=== PATIENT | female | born 1985 | race Caucasian/White ===

== ENCOUNTER 2016-11-29 11:02 | Day surgery (SDC) | payer BC ==
[~2016-11-29 11:02] MED LIST: Buffered Lidocaine 0.9% SYRIN* 5 ML/SYR SYRINGE INTRADERM ONE; Dexamethasone IV* 4 MG/ML 1 ML (4 MG) ONE; DiMENhydriNATE IV* 50 MG/ML VIAL ONE; Famotidine IV* 10 MG/ML 2 ML (20 mg) IV ONE; Ketorolac INJ* 30 MG/ML 1 ML VIAL ONE; Lidocaine 2% PF * 5 ML VIAL ONE; Midazolam* 1 MG/ML 5 ML VIAL (5 MG) ONE; Ondansetron INJ* 2 MG/ML VIAL ONE; Propofol* 10 MG/ML 20 ML BTL IV PUSH ONE; fentaNYL* 50 MCG/ML 2 ML VIAL (100 MCG VIAL) ONE
[2016-11-29] MEDS ORDERED: Ferric Subsulfate* 8 ML BTL ONE (11:33)
[2016-11-29] MEDS ORDERED: Iodine Strong (LUGOL'S)* 14 ML BTL ONE (11:33)
[2016-11-29] MEDS ORDERED: Lidocaine 1% INJ* 10 MG/ML 30 ML SDV ONE (11:33)
[2016-11-29] MEDS ORDERED: Acetic Acid 0.25%* 250 ML BTL ONE (11:34)
[2016-11-29] MEDS ORDERED: DiMENhydriNATE IV* 50 MG/ML VIAL IV PUSH PRN (11:50)
[2016-11-29] MEDS ORDERED: Acetaminophen TAB* 325 MG PO PRN (11:50)
[2016-11-29] MEDS ORDERED: oxyCODONE TAB* 5 MG TAB PO PRN (11:50)
[2016-11-29] MEDS ORDERED: HYDROmorphone* 1 MG/ML 1 ML SYR IV PRN (11:50)
[2016-11-29 12:00] LABS: Manual Entry Verification AS; UR Preg Internal Control QC Line Present; UR Preg Kit Lot# 7010135
[2016-11-29 14:17] VITALS: BP 108/64
--- NOTE | 2016-12-07 05:54 | OP ---
DATE OF OPERATION: 11/29/16 [facility] DATE OF : 87 SURGEON: Leonard Styles MD ANESTHESIOLOGIST: Rupinder Unger MD ANESTHESIA: General anesthetic. PRE-OP DIAGNOSIS: High grade squamous intraepithelial lesion on colposcopy, consistent with cervical intraepithelial neoplasia III, carcinoma in situ. POST-OP DIAGNOSIS: High grade squamous intraepithelial lesion on colposcopy, consistent with cervical intraepithelial neoplasia III, carcinoma in situ, pending pathology. OPERATIVE PROCEDURE: Colposcopy and loop electrocautery excision procedure. ESTIMATED BLOOD LOSS: Less than 5 cc. SPECIMEN SENT TO PATHOLOGY: Cervical LEEP biopsy specimen. IV FLUIDS: She received 600 cc of IV crystalloid fluid. URINE OUTPUT: None. FINDINGS: The patient was noted to have a grossly normal cervix on the exam under anesthesia. Colposcopically, she had an adequate colposcopy. There was an acetowhite lesion with not normal blood vessels noted at the left ectocervical border from 1 o'clock to 5 o'clock position. DESCRIPTION OF PROCEDURE: The patient was taken to the operating room where she was identified. She was placed on the operating table, where a general anesthetic with endotracheal intubation was obtained without difficulty. She was then placed in the dorsal lithotomy position, prepped and draped in a normal sterile fashion. At this point, the bladder was catheterized and cleared of urine. A coated speculum was inserted into the patient's vagina and the speculum was then attached to suction and at this point a colposcopy was performed using acetic acid. The colposcopy was deemed to be adequate and a lesion was identified at the 1 o'clock to 5 o'clock position. After the colposcopy, I then proceeded with a loop electrocautery excision procedure, cervical biopsy at a setting of 50 pure cut. The LEEP procedure was done. The cervical specimen was removed and sent to Pathology. The bed of the cervix where the specimen had been obtained was cauterized with a ball electrode and hemostasis was achieved. At this point, there was no further bleeding. All the instruments were then removed from the patient's vagina. Sponge, lap, and needle counts were correct x2. She was then transferred to recovery area in stable condition. [id number]/[facility] #: [id number] [facility]
== END 2016-11-29 14:19 | disposition home or self-care (01) ==
LOC: OR 11:02
PROVIDERS: ATTEND Obstetrics & Gynecology
DX: D06.1 Carcinoma in situ of exocervix (principal); Z88.2 Allergy status to sulfonamides
CPT/HCPCS: 81025; 88307; A9270-GY; J1100; J1240; J1885; J2001; J2250; J2405; J2704; J3010

== ENCOUNTER 2017-06-12 08:35 | Emergency (ER) | payer BC ==
--- NOTE | 2017-06-12 10:08 | ED ---
Influenza-Like Illness - HPI Summary HPI Summary: 32 female presents to ED with complaints of nasal congestion, myalgias, cough and fever/chills that has been ongoing for the past 3 days. States her entire family has been diagnosed with the flu and she thinks that is what she has. Denies any difficulty breathing or SOB however when she takes a deep breath it does make her cough. Denies chest pain. Admits to having a productive cough intermittently, with yellow "chunky" phlegm. No other complaints. No PMHx. No medications other than dayquil or nyquil. States fever was 101-100F. Denies n/v/ d. - History of Current Complaint Chief Complaint: EDFluSymptoms Time Seen by Provider: 06/12/17 09:03 Hx Obtained From: Patient Onset/Duration: Sudden Onset, Lasting Days, Still Present Severity: Moderate Associated Signs & Symptoms: Fever, Myalgia, Cough, Sore Throat, Nasal Congestion, Headache - Allergy/Home Medications Allergies/Adverse Reactions: Allergies Allergy/AdvReac Type Severity Reaction Status Date / Time Sulfa Antibiotics AdvReac See Comment Verified 06/12/17 08:49 PMH/Surg Hx/FS Hx/Imm Hx Endocrine/Hematology History: Denies: Hx Diabetes Cardiovascular History: Denies: Hx Hypertension Respiratory History: Denies: Hx Asthma Sensory History: Reports: Hx Contacts or Glasses - GLASSES Denies: Hx Hearing Aid Opthamlomology History: Reports: Hx Contacts or Glasses - GLASSES Neurological History: Reports: Hx Migraine - 2-3 per year-TREATS WITH REST - Surgical History Surgery Procedure, Year, and Place: 06/2016- BILATERAL BREAST AUGMENTATION- [place] Hx Anesthesia Reactions: No - Immunization History Immunizations Up to Date: Yes Infectious Disease History: Yes Infectious Disease History: Denies: Traveled Outside the [place] in Last 30 Days - Family History Known Family History: Positive: None - Social History Alcohol Use: Rare Alcohol Amount: 1-2 PER WEEK Substance Use Type: Reports: None Smoking Status (MU): Never Smoked Tobacco Review of Systems Positive: Fever, Chills, Fatigue Eyes: Negative Positive: Sore Throat, Nasal Discharge Cardiovascular: Negative Positive: Cough Gastrointestinal: Negative Positive: Myalgia Skin: Negative Positive: Headache All Other Systems Reviewed And Are Negative: Yes Physical Exam Triage Information Reviewed: Yes Vital Signs On Initial Exam: Initial Vitals Temp Pulse Resp BP Pulse Ox 99.7 F 93 16 115/74 97 06/12/17 08:50 06/12/17 08:50 06/12/17 08:50 06/12/17 08:50 06/12/17 08:50 Vital Signs Reviewed: Yes Appearance: Positive: Well-Appearing, No Pain Distress, Well-Nourished Skin: Positive: Warm, Skin Color Reflects Adequate Perfusion, Dry. Negative: Cold, Cyanosis @, Erythema @ Head/Face: Positive: Normal Head/Face Inspection Eyes: Positive: Conjunctiva Clear ENT: Positive: Hearing grossly normal, Pharyngeal erythema, Nasal congestion, TMs normal, Uvula midline. Negative: TM bulging, TM dull, TM red, Tonsillar swelling, Tonsillar exudate Dental: Negative: Cervical Lymphadenopathy Neck: Positive: Supple, Nontender, No Lymphadenopathy Respiratory/Lung Sounds: Positive: Clear to Auscultation, Breath Sounds Present , Wheezes - slight wheeze lower left lobe, improved after cough. Negative: Decreased Breath Sounds, Rales, Rhonchi, Stridor, Tracheal Deviation, Unable to speak in full sentences, Fatigue Cardiovascular: Positive: Normal, RRR, Pulses are Symmetrical in both Upper and Lower Extremities. Negative: Murmur, Rub Bowel Sounds: Positive: Present Musculoskeletal: Positive: Normal, Strength/ROM Intact Neurological: Positive: Normal, Sensory/Motor Intact, Alert, Oriented to Person Place, Time Diagnostics - Vital Signs Vital Signs Temp Pulse Resp BP Pulse Ox 06/12/17 08:50 99.7 F 93 16 115/74 97 - Laboratory Lab Statement: Any lab studies that have been ordered have been reviewed, and results considered in the medical decision making process. Flu Symptom Course/Dx - Course Course Of Treatment: influenza obtained and positive for A. will give tamiflu. rest, fluids, ibu/tylenol. aware of worsening signs and symptoms. no other concerns at this time. follow up with pcp. - Diagnoses Differential Diagnosis/HQI/PQRI: Positive: Influenza, Pneumonia, Upper Respiratory Infection Provider Diagnoses: Influenza A Discharge - Discharge Plan Condition: Stable Disposition: HOME Prescriptions: Oseltamivir CAP* [Tamiflu CAP*] 75 mg PO BID #10 cap Patient Education Materials: Influenza (ED) Forms: *Work Release Referrals: Chacha Alba MD [Primary Care Provider] - Additional Instructions: Take prescribed tamiflu as directed. Continue ibuprofen/tylenol as needed for fever/chills and body aches. Increase fluid intake and get plenty of rest. Wash hands frequently, cover mouth when coughing. Flu is very contagious. Any new or worsening symptoms please seek medical attention. Follow up with PCP.
[2017-06-12 10:35] VITALS: BP 129/90
== END 2017-06-12 10:34 | disposition home or self-care (01) ==
LOC: ED 08:35
DX: J11.1 Influenza due to unidentified influenza virus with other respiratory manifestations (principal); Z88.2 Allergy status to sulfonamides
CPT/HCPCS: 87502; 99282

== ENCOUNTER 2017-06-19 07:03 | Emergency (ER) | payer BC ==
[2017-06-19] MEDS ORDERED: Ondansetron ODT TAB* 4 MG PO ONE (07:40)
[2017-06-19] MEDS ORDERED: Prochlorperazine TAB* 10 MG PO ONE (07:56)
[2017-06-19] MEDS ORDERED: Ketorolac INJ* 30 MG/ML 1 ML VIAL IV PUSH ONE (07:56)
[2017-06-19] MEDS ORDERED: diPHENhydraMINE IV* 50 MG/ML 1 ml VIAL (BENADRYL) IV ONE (07:56)
[2017-06-19 08:12] LABS: Urine Appearance Clear; Urine Blood Negative (Negative); Urine Color Yellow; Urine Ketones Trace (Negative); Urine Protein Negative (Negative); Urine Urobilinogen Negative (Negative)
[2017-06-19 08:16] LABS: ABS Basophils 0 10^3/ul (0-0.2); ABS Eosinophils 0.1 10^3/ul (0-0.6); ABS Lymphocytes 2.5 10^3/ul (1.0-4.8); ABS Monocytes 0.7 10^3/ul (0-0.8); ABS Neutrophils 7.9 10^3/ul (1.5-7.7); ABS Nucleated RBC 0 10^3/ul; Eosinophil % 1.1 % (0-6); Hematocrit 42 % (35-47); Hemoglobin 14.3 g/dl (12.0-16.0); Lymphocyte % 21.8 % (25-47); Mean Corpuscular HGB Conc 34 g/dl (31-36); Mean Corpuscular Hemoglobin 31 pg (27-31); Mean Corpuscular Volume 90 fL (80-97); Mean Platelet Volume 8 um3 (7.4-10.4); Nucleated Red Blood Cells % 0; Platelet Count 243 10^3/ul (150-450); Red Blood Count 4.67 10^6/ul (4.0-5.4); Red Cell Distribution Width 13 % (10.5-15); White Blood Count 11.3 10^3/ul (3.5-10.8)
[2017-06-19 08:30] LABS: EGFR Non-African American 104.5 (>60)
[2017-06-19] MEDS ORDERED: Morphine INJ* 4 MG/ML 1 ML CARPUJECT IV ONE (09:13)
--- NOTE | 2017-06-19 10:22 | RAD ---
indication: Headaches and vomiting COMPARISON: None A CT scan of the brain and and maxillofacial bones was performed without intravenous contrast enhancement. Contiguous axial sections were obtained from the lower cervical spine through the cranial vertex. BRAIN: The ventricles, cisterns and sulci are within normal limits. No significant focal abnormality or mass effect is seen. The crawford-white differentiation is adequately maintained. There is no evidence for intracranial hemorrhage. No significant bony abnormality is present. The mastoid air cells are appropriately aerated. The visualized paranasal sinuses are clear. FACIAL BONES: Bones: There is no displaced fracture or dislocation. The orbital rim is intact. The zygomatic arch is intact. The pterygoid plates are intact Orbits: The globes are round. The optic nerves are symmetric. The extraocular musculature is normal. There is no post septal or intraconal inflammatory change. There is no retrobulbar hematoma. Paranasal Sinuses: The paranasal sinuses are clear. IMPRESSION: 1. No acute intracranial abnormality. 2. Normal facial bones without CT evidence of paranasal sinus disease.
--- NOTE | 2017-06-19 12:05 | ED ---
Rocky Handy Angela, scribed for Tramaine Bishop MD on 06/19/17 at 0740 . Headache - HPI Summary HPI Summary: This pt is a 32 y/o female presenting to [facility] c/o headache since yesterday. Pt reports she tested positive for the flu 1 week ago. She states she has had a headache since yesterday morning. Pt notes she got up at 20:00 last night and vomited, but went back to bed. This morning she felt nauseous but still came to work. Pt reports she has history of migraines but her usual migraines are associated with pain behind her eye and when she has more significant pain she vomits, but usually her migraine subsides after vomiting. She felt feverish last night, today feels flushed and has photophobia. Denies LE or UE weakness, numbness, tingling, neck pain. Pt has not eaten since yesterday and this morning had a little bit of water secondary to nausea. She notes this is the first headache she has had like this in 3 years. Pt last took ibuprofen 600 mg at 06:00 today. Allergies to sulfa. Surgeries include LEEP in cervix in December 2016 and 1 year ago she had bilateral breast augmentation. Denies chance of . When she was 13 y/o pt had suppository medications for migraine. She reports narcotics make her feel worse. - History Of Current Complaint Chief Complaint: EDHeadache Stated Complaint: FLU LAST WEEK, HEADACHE Hx Obtained From: Patient Onset/Duration: Started days ago, Still Present Currently Pain Is: Current Pain Scale(0-10)= - 7 Timing: Days Location of Headache: Diffuse Aggravating Factor: Bright Lights Allevating Factors: Nothing Associated Signs And Symptoms: Nausea, Vomiting, Fever - Allergies/Home Medications Allergies/Adverse Reactions: Allergies Allergy/AdvReac Type Severity Reaction Status Date / Time Sulfa Antibiotics AdvReac See Comment Verified 06/12/17 08:49 PMH/Surg Hx/FS Hx/Imm Hx Endocrine/Hematology History: Denies: Hx Diabetes Cardiovascular History: Denies: Hx Hypertension Respiratory History: Denies: Hx Asthma Sensory History: Reports: Hx Contacts or Glasses - GLASSES Denies: Hx Hearing Aid Opthamlomology History: Reports: Hx Contacts or Glasses - GLASSES Neurological History: Reports: Hx Migraine - 2-3 per year-TREATS WITH REST - Surgical History Surgery Procedure, Year, and Place: 06/2016- BILATERAL BREAST AUGMENTATION- [place] Hx Anesthesia Reactions: No Infectious Disease History: No Infectious Disease History: Denies: Traveled Outside the [place] in Last 30 Days - Family History Known Family History: Positive: Diabetes - maternal grandfather - Social History Alcohol Use: Rare Alcohol Amount: 1-2 PER WEEK Substance Use Type: Reports: None Smoking Status (MU): Never Smoked Tobacco Review of Systems Positive: Fever. Negative: Chills Positive: Photophobia Positive: Vomiting, Nausea Negative: Other - neck pain Positive: Headache. Negative: Weakness, Paresthesia, Numbness All Other Systems Reviewed And Are Negative: Yes Physical Exam - Summary Physical Exam Summary: Appearance: Well-appearing, Well-nourished. No acute distress. Skin: Warm and dry. Eyes: Normal. EOMI. PERRL. ENT: Normal. Neck: Supple, nontender. No masses. Respiratory: Clear to auscultation. Normal breath sounds bilaterally. Cardiovascular: Normal, S1, S2 Abdomen: Soft, nontender, no masses. Bowel: Present Musculoskeletal: Normal, Strength/ROM Intact. Normal strength and sensation bilaterally in UE and LE. Neurological: Normal, A&Ox3. Cranial nerves II-XII are intact. Psychiatric: Normal Triage Information Reviewed: Yes Vital Signs On Initial Exam: Initial Vitals Temp Pulse Resp BP Pulse Ox 98.6 F 78 18 127/93 99 06/19/17 07:05 06/19/17 07:05 06/19/17 07:05 06/19/17 07:05 06/19/17 07:05 Vital Signs Reviewed: Yes - [place] Coma Scale Coma Scale Total: 15 Diagnostics - Vital Signs Vital Signs Temp Pulse Resp BP Pulse Ox 06/19/17 07:05 98.6 F 78 18 127/93 99 - Laboratory Lab Results: Lab Results 06/19/17 06/19/17 06/19/17 Range/Units 07:48 08:06 08:06 WBC 11.3 H (3.5-10.8) 10^3/ul RBC 4.67 (4.0-5.4) 10^6/ul Hgb 14.3 (12.0-16.0) g/dl Hct 42 (35-47) % MCV 90 (80-97) fL MCH 31 (27-31) pg MCHC 34 (31-36) g/dl RDW 13 (10.5-15) % Plt Count 243 (150-450) 10^3/ul MPV 8 (7.4-10.4) um3 Neut % (Auto) 70.3 (38-83) % Lymph % (Auto) 21.8 L (25-47) % [place] % (Auto) 6.5 (1-9) % Eos % (Auto) 1.1 (0-6) % Baso % (Auto) 0.3 (0-2) % Absolute Neuts (auto) 7.9 H (1.5-7.7) 10^3/ul Absolute Lymphs (auto) 2.5 (1.0-4.8) 10^3/ul Absolute Monos (auto) 0.7 (0-0.8) 10^3/ul Absolute Eos (auto) 0.1 (0-0.6) 10^3/ul Absolute Basos (auto) 0 (0-0.2) 10^3/ul Absolute Nucleated RBC 0 10^3/ul Nucleated RBC % 0 Sodium 137 (133-145) mmol/L Potassium 3.8 (3.5-5.0) mmol/L Chloride 105 (101-111) mmol/L Carbon Dioxide 24 (22-32) mmol/L Anion Gap 8 (2-11) mmol/L BUN 9 (6-24) mg/dL Creatinine 0.66 (0.51-0.95) mg/dL Est GFR ( Amer) 134.3 (>60) Est GFR (Non-Af Amer) 104.5 (>60) BUN/Creatinine Ratio 13.6 (8-20) Glucose 89 (70-100) mg/dL Calcium 9.3 (8.6-10.3) mg/dL Total Bilirubin 0.90 (0.2-1.0) mg/dL AST 16 (13-39) U/L ALT 14 (7-52) U/L Alkaline Phosphatase 46 (34-104) U/L Total Protein 7.6 (6.4-8.9) g/dL Albumin 4.5 (3.2-5.2) g/dL Globulin 3.1 (2-4) g/dL Albumin/Globulin Ratio 1.5 (1-3) Beta HCG, Quant < 0.60 mIU/mL Urine Color Yellow Urine Appearance Clear Urine pH 7.0 (5-9) Ur Specific [place] 1.020 (1.010-1.030) Urine Protein Negative (Negative) Urine Ketones Trace H (Negative) Urine Blood Negative (Negative) Urine Nitrate Positive H (Negative) Urine Bilirubin Negative (Negative) Urine Urobilinogen Negative (Negative) Ur Leukocyte Esterase Negative (Negative) Urine WBC (Auto) Absent (Absent) Urine RBC (Auto) Absent (Absent) Ur Squamous Epith Cells Present H (Absent) Urine Bacteria 1+ H (Absent) Urine Glucose Negative (Negative) Result Diagrams: 06/19/17 08:06 06/19/17 08:06 Lab Statement: Any lab studies that have been ordered have been reviewed, and results considered in the medical decision making process. - CT Brain CT CT Interpretation: No Acute Changes - IMPRESSION: 1. No acute intracranial abnormality. 2. Normal facial bones without CT evidence of paranasal sinus disease. Dr. Bishop has reviewed this radiology report. CT Interpretation Completed By: Radiologist Maxillofacial CT CT Interpretation: No Acute Changes - IMPRESSION: 1. No acute intracranial abnormality. 2. Normal facial bones without CT evidence of paranasal sinus disease. Dr. Bishop has reviewed this radiology report. CT Interpretation Completed By: Radiologist Headache Course/Dx - Course Course Of Treatment: Headache almost completely resolved after medications here in the ED. Pt feels better. No neurological deficit. CT is negative for any acute abnormalities. Pt is instructed to follow up with her PCP and return for any worsening symptoms. Pt and family agree and understand discharge instructions. - Diagnoses Provider Diagnoses: Headache Discharge - Discharge Plan Condition: Improved Disposition: HOME Prescriptions: diPHENhydraMINE PO* [Benadryl PO 25 MG TAB*] 25 mg PO Q6H PRN #12 tab PRN Reason: Pain - Moderate Prochlorperazine TAB* [Compazine Tab*] 5 mg PO Q8H PRN #12 tab PRN Reason: Pain - Moderate To Severe Patient Education Materials: Acute Headache (ED) Forms: *Work Release Referrals: Chacha Alba MD [Primary Care Provider] - Jovan Crowe MD [Medical Doctor] - Additional Instructions: PLEASE MAKE AN APPOINTMENT FIRST THING IN THE MORNING TO BE SEEN BY A NEUROLOGIST WITHIN 1-2 WEEKS FOR FURTHER EVALUATION PLEASE RETURN IMMEDIATELY TO THE ER IF YOU HAVE ANY WORSENING OR CONCERNING SYMPTOMS PLEASE MAKE AN APPOINTMENT TO BE SEEN BY YOUR PRIMARY CARE DOCTOR WITHIN 1 WEEK The documentation as recorded by the Rocky hurtado Angela accurately reflects the service I personally performed and the decisions made by me, Tramaine Bishop MD.
[2017-06-19 12:15] VITALS: BP 107/65
--- NOTE | 2017-06-21 12:39 | PN ---
Progress Note - Progress Note Date of Service: 06/19/17 Note: Urine culture grew E. Coli Patient not placed on medication prior to discharge She denies any symptoms Will await sensitivities. Nothing further at this time. Kaur Castro PA-C
== END 2017-06-19 12:14 | disposition home or self-care (01) ==
LOC: ED 07:03
DX: R51 Headache (principal); Z88.2 Allergy status to sulfonamides
CPT/HCPCS: 36415; 70450; 70486; 80053; 81003; 81015; 84702; 85025; 87077; 87086; 87186; 96374; 96375; 99283; A9270-GY; J1200; J1885; J2270; Q0164

== ENCOUNTER 2018-04-03 07:21 | Emergency (ER) | payer BC ==
[2018-04-03 07:32] VITALS: BP 124/83
[2018-04-03] MEDS ORDERED: Albuterol HFA INHALER* 8 gm MDI INH ONE (07:48)
--- NOTE | 2018-04-03 07:50 | UC ---
Respiratory Complaint HPI - HPI Summary HPI Summary: The patient is a 32-year-old female with a cough for 3-4 weeks. He denies any fever or chills. She has had no recent travel. She denies any chest pain or shortness of breath. Her chest does feel tight. Her cough is occasionally productive of phlegm. Denies any sinus pressure or pain. Denies any history of asthma or pneumonia. Nonsmoker. - History of Current Complaint Chief Complaint: UCRespiratory Stated Complaint: COUGH Time Seen by Provider: 04/03/18 07:41 Hx Obtained From: Patient Hx Last Menstrual Period: iud Onset/Duration: Gradual Onset Timing: Constant Severity Initially: Mild Severity Currently: Moderate Pain Intensity: 2 Pain Scale Used: 0-10 Numeric Character: Cough: Nonproductive Aggravating Factors: Nothing Associated Signs And Symptoms: Positive: Negative - Allergies/Home Medications Allergies/Adverse Reactions: Allergies Allergy/AdvReac Type Severity Reaction Status Date / Time Sulfa (Sulfonamide Allergy See Comment Verified 04/03/18 07:32 Antibiotics) Home Medications: Home Medications GuaiFENesin DM* [Robitussin DM*] 10 ml PO Q6H PRN 04/03/18 [History Confirmed ] guaiFENesin [Mucinex] 600 mg PO 04/03/18 [History] PMH/Surg Hx/FS Hx/Imm Hx Previously Healthy: Yes - Surgical History Surgical History: Yes Surgery Procedure, Year, and [facility] - Family History Known Family History: Positive: Hypertension, Diabetes - maternal grandfather - Social History Alcohol Use: Weekly Alcohol Amount: 1-2 PER WEEK Substance Use Type: None Smoking Status (MU): Never Smoked Tobacco Review of Systems Constitutional: Negative Skin: Negative Eyes: Negative ENT: Negative Respiratory: Cough Cardiovascular: Negative Gastrointestinal: Negative Genitourinary: Negative Motor: Negative Neurovascular: Negative Musculoskeletal: Negative Neurological: Negative Psychological: Negative All Other Systems Reviewed And Are Negative: Yes Physical Exam Triage Information Reviewed: Yes Appearance: Well-Appearing, No Pain Distress, Well-Nourished Vital Signs: Initial Vital Signs Temp 98.7 F 04/03/18 07:28 Pulse 77 04/03/18 07:28 Resp 18 04/03/18 07:28 BP 124/83 04/03/18 07:28 Pulse Ox 100 04/03/18 07:28 Vital Signs Reviewed: Yes Eyes: Positive: Conjunctiva Clear ENT: Positive: Hearing grossly normal, Uvula midline. Negative: Nasal congestion, Nasal drainage, Tonsillar swelling, Tonsillar exudate, Trismus, Muffled voice, Hoarse voice, Dental tenderness, Sinus tenderness Neck: Positive: Supple, Nontender, No Lymphadenopathy Respiratory: Positive: No respiratory distress, No accessory muscle use, Wheezing - with forced expiration UC Diagnostic Evaluation - Laboratory O2 Sat by Pulse Oximetry: 100 - normal/not hypoxic Respiratory Course/Dx - Differential Dx/Diagnosis Provider Diagnoses: acute bronchitis with bronchospasm Discharge - Sign-Out/Discharge Documenting (check all that apply): Patient Departure All imaging exams completed and their final reports reviewed: No Studies - Discharge Plan Condition: Stable Disposition: HOME Prescriptions: Amoxicillin PO (*) [Amoxicillin 875 MG (*)] 875 mg PO BID #14 tab predniSONE [Deltasone 20 MG TAB] 40 mg PO DAILY #10 tab Patient Education Materials: Acute Bronchitis (ED) Referrals: Chacha Alba MD [Primary Care Provider] - 7 Days (if not better) Additional Instructions: use inhaler as directed 2 puffs 4x day for one week - Billing Disposition and Condition Condition: STABLE Disposition: Home
== END 2018-04-03 08:04 | disposition home or self-care (01) ==
LOC: UCEAST 07:21
DX: J20.9 Acute bronchitis, unspecified (principal); Z88.2 Allergy status to sulfonamides
CPT/HCPCS: 99212; A9270-GY; G0463

== ENCOUNTER 2019-09-15 16:07 | Emergency (ER) | payer BC, OTHER ==
--- OUTSIDE RECORDS SUMMARY | 2019-09-15 16:12 | XMS REPORT | Continuity of Care Document ---
:1985 External Reference #:[id number] Author Name Rupinder Weeks DNP, RN, HEALTHCARE ADMINISTRATOR-BC (transmitted by agent of provider Jordyn Thakur) Address [address] [facility], [address] [place] [address] Care Team Providers Name Role Phone Ailyn Cardoza FNP-Cde - Family Care Team Information Surgical Aide [phone] Problems Description No Information Available Social History Type Date Description Comments Sex Unknown Tobacco Use Start: Unknown Never Smoked Cigarettes Smoking Status Reviewed: 07/29/19 Never Smoked Cigarettes ETOH Use Occasionally consumes alcohol Tobacco Use Start: Unknown Patient has never smoked Recreational Drug Use Denies Drug Use Exercise Type/Frequency Exercises rarely Allergies, Adverse Reactions, Alerts Active Allergies Reaction Severity Comments Date Sulfa Antibiotics Hives 02/21/2019 Medications Active Medications SIG Qnty Indications Ordering Provider Date Fioricet 1 by mouth for 14caps G43.009 Oscar Estrella, 04/15/2019 50-300-40mg bad headache, N.P. Capsules every 8 hours; may use twice a week History Medications No Active Medications Unknown 04/15/2019 - 04/15/2019 Cipro take one tab 14tabs Ailyn Cardoza, 02/24/2019 - 500mg Tablets twice daily x 7 HEALTHCARE ADMINISTRATOR-Cde 04/14/2019 days Diflucan 1 by mouth every 2tabs Ailyn Cardoza, 02/24/2019 - 150mg Tablets day x 2 days HEALTHCARE ADMINISTRATOR-Cde 04/14/2019 No Active Medications Unknown 02/21/2019 - 02/24/2019 Immunizations Description No Information Available Vital Signs Date Vital Result Comment 07/29/2019 12:43pm Height 66 inches 5'6" Weight 173.25 lb Heart Rate 84 /min BP Systolic Sitting 122 mmHg BP Diastolic Sitting 60 mmHg O2 % BldC Oximetry 97 % BMI (Body Mass Index) 28.0 kg/m2 Neck Circumference in inches 14.5 05/29/2019 4:10pm Height 66 inches 5'6" Weight 176.00 lb Heart Rate 73 /min BP Systolic 131 mmHg BP Diastolic 75 mmHg O2 % BldC Oximetry 99 % BMI (Body Mass Index) 28.4 kg/m2 Results Test Acquired Date Facility Test Result H/L Range Note Laboratory test 04/18/2019 [facility] Anti Nuclear 0.4 U [address] [place] [address] [phone] Lyme Screen W/ Reflex To WB Negative Negative Erythrocyte Sed Rate 5 mm/Hr Normal 0-19 C Reactive Protein < 1.00 mg/L Normal <8.01 Protein 04/18/2019 [facility] Total 7.8 g/dL 6.3 - Electrophoresis [address] Protein(Pep) 7.9 [place] [address] [phone] Albumin 4.2 g/dL 3.4-4.7 Alpha-1 Globulin 0.2 g/dL 0.1-0.3 Alpha-2 Globulin 0.9 g/dL 0.6-1.0 Beta Globulin 1.0 g/dL 0.7-1.2 Gamma Globulin 1.5 g/dL 0.6-1.6 Albumin/Globulin Ratio 1.15 Impression See Comment 2 Urinalysis Profile 04/18/2019 [facility] Urine Color Yellow [address] [place] [address] [phone] Urine Appearance Cloudy Urine Specific [place] 1.023 Normal 1.010-1.030 Urine pH 6.0 Normal 5-9 Urine Urobilinogen Negative Negative Urine Ketones Negative Negative Urine Protein Negative Negative Urine Leukocytes Negative Negative Urine Blood Negative Negative Urine Nitrite Negative Negative Urine Bilirubin Negative Negative Urine Glucose Negative Negative CBC Auto 02/21/2019 [facility] White Blood 12.2 10^3/uL High 3.5-10.[address] [place] [address] [phone] Red Blood Count 4.56 10^6/uL Normal 3.70-4.87 Hemoglobin 14.2 g/dL Normal 12.0-16.0 Hematocrit 42 % Normal 35-47 Mean Corpuscular Volume 92 fL Normal 80-97 Mean Corpuscular Hemoglobin 31 pg Normal 27-31 Mean Corpuscular HGB Conc 34 g/dL Normal 31-36 Red Cell Distribution Width 13 % Normal 10-15 Platelet Count 282 10^3/uL Normal 150-450 Mean Platelet Volume 8.2 fL Normal 7.4-10.4 Abs Neutrophils 7.5 10^3/uL Normal 1.5-7.7 Abs Lymphocytes 3.4 10^3/uL Normal 1.0-4.8 Abs Monocytes 1.0 10^3/uL High 0-0.8 Abs Eosinophils 0.2 10^3/uL Normal 0-0.6 Abs Basophils 0.1 10^3/uL Normal 0-0.2 Abs Nucleated RBC 0.0 10^3/uL Granulocyte % 61.5 % Lymphocyte % 28.3 % Monocyte % 8.2 % Eosinophil % 1.5 % Basophil % 0.5 % Nucleated Red Blood Cells % 0.0 Laboratory 02/21/2019 [facility] TSH (Thyroid 2.02 Normal 0.34 -5.[address] Stim Horm) mcIU/[place] [address] [phone] Vitamin D Total 25(Oh) 31.2 ng/mL Normal 20-50 3 Ferritin 60.4 ng/mL Normal 11-307 Comp Metabolic 02/21/2019 [facility] Sodium 138 mmol/L Normal 135-145 Panel [facility] [place] [address] [phone] Potassium 4.0 mmol/L Normal 3.5-5.0 Chloride 106 mmol/L Normal 101-111 Co2 Carbon Dioxide 25 mmol/L Normal 22-32 Anion Gap 7 mmol/L Normal 2-11 Glucose 88 mg/dL Normal 70-100 Blood Urea Nitrogen 17 mg/dL Normal 6-24 Creatinine 0.67 mg/dL Normal 0.51-0.95 BUN/Creatinine Ratio 25.4 High 8-20 Calcium 9.1 mg/dL Normal 8.6-10.3 Total Protein 7.0 g/dL Normal 6.4-8.9 Albumin 4.6 g/dL Normal 3.2-5.2 Globulin 2.4 g/dL Normal 2-4 Albumin/Globulin Ratio 1.9 Normal 1-3 Total Bilirubin 0.30 mg/dL Normal 0.2-1.0 Alkaline Phosphatase 56 U/L Normal 34-104 Alt 15 U/L Normal 7-52 Ast 17 U/L Normal 13-39 Egfr Non- 102.0 >60 Egfr 123.4 >60 4 Laboratory test 02/21/2019 [facility] Hemoglobin A1c 5.1 % Normal 4.0-5.[address] (Glyco HGB) [place], [place] [id number] [phone] Vitamin B12 And 02/21/2019 [facility] Vitamin B12 498 Normal 180-914 6 Folate Serum 101 pg/[place] [address] [phone] Folic Acid (Folate) > 20.00 ng/mL >3.99 Laboratory test 02/21/2019 [facility] HCG < 0.60 mIU/ mL 7 finding [address] [place] [address] [phone] Urinalysis Profile 02/21/2019 [facility] Urine Color Yellow [address] [place] [address] [phone] Urine Appearance Cloudy Urine Specific [place] 1.025 Normal 1.010-1.030 Urine pH 6.0 Normal 5-9 Urine Urobilinogen Negative Negative Urine Ketones Negative Negative Urine Protein Negative Negative Urine Leukocytes Negative Negative Urine Blood Negative Negative Urine Nitrite Positive Abnormal Negative Urine Bilirubin Negative Negative Urine Glucose Negative Negative Urine White Blood Cell Trace(0-5/hpf) Absent Urine Red Blood Cell 1+(3-5/hpf) Abnormal Absent Urine Bacteria 1+ Abnormal Absent Urine Squamous Epithelial Cell Present Abnormal Absent Laboratory test 02/21/2019 [facility] Cytology SEE RESULT [address] [place] [address] [phone] Urine Culture And 02/21/2019 [facility] Urine Culture SEE RESULT [address] [place] [address] [phone] 1 REFERENCE VALUE <=1.0 (Negative) Test Performed by: [facility] [address] [place] [address] Coin Machine Servicer Repairer: Juan Diego Palomino M.D. Ph.D.; CLIA# [id number] 2 RESULT: No apparent monoclonal protein on serum electrophoresis. Test Performed by: [facility] [address] [place] [address] Coin Machine Servicer Repairer: Juan Diego Palomino M.D. Ph.D.; CLIA# [id number] 3 Total 25-Hydroxyvitamin D2 and D3 (25-OH-VitD) <10 ng/mL (severe deficiency) 10-19 ng/mL (mild to moderate deficiency) 20-50 ng/mL (optimum levels) 51-80 ng/mL (increased risk of hypercalciuria) >80 ng/mL (toxicity possible) 4 Because ethnic data is not always readily available, this report includes an eGFR for both -Americans and non- Americans. The National Kidney Disease Education Program (NKDEP) does not endorse the use of the MDRD equation for patients that are not between the ages of 18 and 70, are , have extremes of body size, muscle mass, or nutritional status, or are non- or non-. According to the National Kidney Foundation, irrespective of diagnosis, the stage of the disease is based on the level of kidney function: Stage Description GFR(mL/min/1.73 m(2)) 1 Kidney damage with normal or decreased GFR 90 2 Kidney damage with mild decrease in GFR 60-89 3 Moderate decrease in GFR 30-59 4 Severe decrease in GFR 15-29 5 Kidney failure <15 (or dialysis) 5 Therapeutic target for the treatment of diabetes mellitus patients is <7% HBA1C, and in selective patients <6.0%. Please refer to [place] Diabetes Association diabetic care guidelines for further information. 6 Normal Range 180 to 914 Indeterminate Range 145 to 180 Deficient Range <145 7 <5.0 Negative 5.0 - 25.0 Indeterminate (Repeat testing recommended after 72 hours) >25.0 Positive Perimenopausal women can display HCG levels of up to 20 mIU/mL 8 SEE RESULT BELOW Name: SANTIZO,NATALIE : [address]: Ailyn Cardoza NP [facility] Acct: [id number] Unit: [id number] AGE: 33 Location: [facility] Re02/21/19 SEX: F Status: REG REF SPEC: [id number] YEFRI: 02/21/19-155 [facility] DR: Ailyn Cardoza NP [facility] REQ: [id number] RECD: 02/21/19 STATUS: ADELA BLACK DR: Chacha Alba MD _ ORDERED: TP IMAGE ANALYS, HPV/Thin Prep, HPV 16/18 GENE COMMENTS: [id number] FINAL DIAGNOSIS Negative for Intraepithelial lesion or Malignancy HPV RESULTS Date Time Test Result Flag (u) Normal Range 02/21/19 1559 HPV PAMELA RFLX GE Negative Negative The high-risk HPV types detected by the assay include: 16, 18, 31, 33, 35, 39, 45, 51, 52, 56, 58, 59, 66, and 68. SPECIMEN(S) RECEIVED A. Ectocervical/Endocervical CYTOLOGY ADEQUACY Specimen Adequacy: Satisfactory of evaluation Transformation zone component not identified CYTOLOGY PATIENT INFORMATION Patient Information: HPV: High risk HPV RNA testing regardless of pap results. HPV 16/18 Genotype Reflex Actual Specimen Date: 02/21/19 LMP If Unknown: Mirena IUD ?: N Post Menopausal?: N Hysterectomy?: N CONTINUED ON NEXT PAGE DEPARTMENT OF PATHOLOGY, [address] [place], [place] [id number] Abdi Valdes M.D. Director [facility] # [id number] Signed by and Reported on: Gautam GABY Peres(ASCP) 1531 This Pap test was evaluated with the assistance of the EvotecPrep Test Imaging System. Due to cytologic findings at the syrup machine laborer microscope, comprehensive manual rescreening by a Marina Manager may be required. The Pap Smear is a screening test designed to aid in the detection of premalignant and malignant conditions of the uterine cervix. It is not a diagnostic procedure and should not be used as the sole means of detecting cervical cancer. Both false- positive and false- negative reports do occur. Depending on your risk status, a Pap smear should be obtained and evaluated every 1-3 years. END OF REPORT DEPARTMENT OF PATHOLOGY, [address] [place] [address] Abdi Valdes M.D. Director [facility] # [id number] 9 SEE RESULT BELOW Name: NATALIE SANTIZO : [address]: Ailyn Cardoza NP [facility] Acct: [id number] Unit: [id number] AGE: 33 Location: [facility] Re02/21/19 SEX: F Status: REG REF SPEC: [id number] YEFRI: 02/21/19-155 [facility] DR: Ailyn Cardoza [facility] REQ: [id number] RECD: 02/21/19 STATUS: COMP _ SOURCE: URINE SPDESC: ORDERED: Urine Culture COMMENTS: [id number] Urine Source: Random Procedure Result Reported Site Urine Culture Final 02/23/19- 1000 ML Organism 1 ESCHERICHIA COLI [place] Count >100,000 (Many) CFU/ML 1. ESCHERICHIA COLI M.I.C. RX --------- ------ Ampicillin 4 S Cefazolin <=4 S Cefepime <=1 S Ceftriaxone <=1 S Ciprofloxacin <=0.25 S Gentamicin <=1 S Levofloxacin <=0.12 S Meropenem <=0.25 S Nitrofurantoin <=16 S Tetracycline <=1 S Pipercillin/Tazobactam <=4 S Trimethoprim/Sulfamethoxazole <=20 S Amoxicillin/Clavulanic Acid <=2 S Aztreonam <=1 S Contact the Microbiology Department for any additional antibiotic reporting. * ML - Main Lab . END OF REPORT DEPARTMENT OF PATHOLOGY, [address] [place] [address] Abdi Valdes M.D. Director [facility] # [id number] Procedures Date Code Description Status 07/10/2019 45150 Polysomnography Sleep Staging 4+ Parameters Completed 06/18/2019 20062 EEG Recording Awake & Asleep Completed 05/29/2019 50995 Remove Intrauterine Device Completed 04/30/2019 00884 ECHO Transthorasic Realtime 2D W Doppler & Color Flow Hosp Completed 04/30/2019 94738 Holter Monitor Review (24 hr)dr rosario & interp only Completed Medical Devices Description No Information Available Encounters Type Date Location Provider Dx Diagnosis Office Visit 05/27/2019 [facility] Oscar Estrella, R00.2 Palpitations 8:00a N.P. R42 Dizziness and giddiness G43.009 Migraine w/o aura, not intractable, w/o status migrainosus R20.2 Paresthesia of skin R53.83 Other fatigue Office Visit 04/15/2019 [facility] Oscar R42 Dizziness and 8:30a Clinic Sameer N.Masoud giddiness G43.009 Migraine w/o aura, not intractable, w/o status migrainosus R20.2 Paresthesia of skin R00.2 Palpitations Office [facility], Z01.419 Encntr for press tender incendiary grenade [facility] HEALTHCARE ADMINISTRATOR-Cde exam (general) (routine) w/o abn findings R53.83 Other fatigue R30.0 Dysuria 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 05/27/2019 R42 Dizziness and giddiness Oscar Estrella, N.P. 05/27/2019 G43.009 Migraine without aura, not Oscar Estrella, N.P. intractable, without status migrainosus 05/27/2019 R20.2 Paresthesia of skin Oscar Estrella, N.P. 05/27/2019 R53.83 Other fatigue Oscar Estrella, N.P. 04/30/2019 R00.2 Palpitations Amaury Heredia M.D. 04/30/2019 R42 Dizziness and giddiness Amaury Heredia M.D. 04/15/2019 R42 Dizziness and giddiness Oscar Estrella, N.P. 04/15/2019 G43.009 Migraine without aura, not Oscar Estrella, N.P. intractable, without status migrainosus 04/15/2019 R20.2 Paresthesia of skin Oscar Estrella, N.P. 04/15/2019 R00.2 Palpitations Oscar Estrella, N.P. 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 at [facility]07/29/2019 - Rupinder Weeks DNP, RN, HEALTHCARE ADMINISTRATOR-BCG47.33 Obstructive sleep apnea (adult) (pediatric)Comments:If you decided to stop CPAP and try the oral appliance/mandibular device the [facility] code is E1486 forsleep apnea ICD10 G47.33Two that take insurance (you would need to see if they participate with yourinsurance)Dr. Son Long MD,DDS ph #[phone]. Herbie DDS [phone] local dentists on list do not take insuranceFollow up:6 weeksRecommendations:Symptomatic mild sleep apnea recommend treatment of apnea. Sleep apnea to start PAP at 5-10 cm Review of sleep study in detail. Review of risks of untreated sleep apnea including cardiovascular events: rhythm irregularities, heart attack, stroke; gastro esophageal reflux disease (GERD); diabetes; anxiety, depression; high blood pressure; accidents (machinery and automobile) Recommendation for PAP other treatment modalities NON-PAP including oral appliance/mandibular advancement device, positional strategies , and surgery. Referral for PAP device to be sent to [facility] phone: [phone] Equipment appointment will take about 45 minutes, the DME provider will call you within 5 days to set you up for the device. If you do not hear from them call the Sleep Center. The mask willhave a 30-day guarantee, if you have mask problems call the DME provider to have a fitting for a different mask. Need distilled water for humidifier CPAP mask and tubing Cleaning Wipe off mask daily (baby wipe-no scent , or warm water) Clean mask, tubing, filter, and water chamber weekly in mild no scent dish soap and water. Hang to dry. If you have problems with the air pressure call the sleep center and speak to a nurse. If you have any further questions, please call the [facility] at [phone]. If you have any sleepiness while driving you MUST avoid operating a vehicle or machinery.G47.14 Hypersomnia due to medical conditionRecommendations:This should improve with apnea treatment Reviewed that you could have other medical problems for hypersomnia such as narcolepsy or idiopathic hypersomnia (not related to the apnea). Functional Status Description No Information Available Mental Status Description No Information Available Referrals Refer to Reason for Referral Status Appt Date Arabella Gee MD Sent [address] [place] [address] [phone] Oscar Estrella NP Headaches, dizziness, numbness and Received Partial 10/2018 tingling in her hands [address] [place] [address] [phone]
--- OUTSIDE RECORDS SUMMARY | 2019-09-15 16:12 | XMS REPORT | Continuity of Care Document ---
:1985 External Reference #:[id number] Author Name Roman Hubbard M.D. 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 Onset: 09/15/2019 Skin sensation disturbance Roman Hubbard M.D. Onset: 09/15/2019 Migraine without aura, not refractory Roman Hubbard M.D. Onset: 2019 Dizziness and giddiness Roman Hubbard M.D. Onset: 09/15/2019 Social History Type Date Description Comments Sex Unknown Tobacco Use Start: Unknown Never Smoked Cigarettes Smoking Status Reviewed: 09/11/19 Never Smoked Cigarettes ETOH Use Occasionally consumes [...] No Active Medications Unknown 04/15/2019 - 04/15/2019 Immunizations Description No Information Available Vital Signs [...] Test Result H/L Range Note Laboratory test 09/05/2019 [facility] Covid19, PCR Undetected Undetected [address] [place] [address] [phone] Laboratory test 04/18/2019 [facility] Anti Nuclear 0.4 U [address] [place] [address] [place] [address] [phone] Lyme Screen W/ Reflex To WB Negative Negative Erythrocyte Sed Rate 5 mm/Hr Normal 0-19 C Reactive Protein < 1.00 mg/L Normal <8.01 Protein 04/18/2019 [facility] Total 7.8 g/dL 6.3 - Electrophoresis [address] [place] [address] Protein(Pep) 7.9 [place] [address] [phone] Albumin 4.2 g/dL 3.4-4.7 Alpha-1 Globulin 0.2 g/dL 0.1-0.3 Alpha-2 Globulin 0.9 g/dL 0.6-1.0 Beta Globulin 1.0 g/dL 0.7-1.2 Gamma Globulin 1.5 g/dL 0.6-1.6 Albumin/Globulin Ratio 1.15 Impression See Comment 3 Urinalysis Profile 04/18/2019 [facility] Urine Color Yellow [address] [place] [address] [phone] Urine Appearance Cloudy Urine Specific [place] 1.023 Normal 1.010-1.030 Urine pH 6.0 Normal 5-9 Urine Urobilinogen Negative Negative Urine Ketones Negative Negative Urine Protein Negative Negative Urine Leukocytes Negative Negative Urine Blood Negative Negative Urine Nitrite Negative Negative Urine Bilirubin Negative Negative Urine Glucose Negative Negative 1 SARS-CoV-2 RNA is not detected. ADDITIONAL INFORMATION Testing was performed using the rosa SARS-CoV-2 assay ([employer] on the [employer] System. Fact sheets for this Emergency Use Authorization (EUA) assay can be found at the following links: For Healthcare Providers: https://www.fda.gov/media/325321/download For Patients: https://www.fda.gov/media/366932/download Test Performed by: [place] [address] Java J2Ee Architect: Juan Diego Palomino M.D. Ph.D.; CLIA# [id number] 2 REFERENCE VALUE <=1.0 (Negative) Test Performed by: [place] [address] [employer] Architect: Juan Diego Palomino M.D. Ph.D.; CLIA# [id number] RESULT: No apparent monoclonal protein on serum electrophoresis. Test Performed by: [place] [address] [employer] J[employer] Architect: Juan Diego Palomino M.D. Ph.D.; CLIA# [id number] Procedures Date Code Description Status 07/10/2019 67103 Polysomnography Sleep Staging 4+ Parameters Completed 06/18/2019 42192 EEG Recording Awake & Asleep Completed 05/29/2019 11527 Remove Intrauterine Device Completed 04/30/2019 75249 ECHO Transthorasic Realtime 2D W Doppler & Color Flow Hosp Completed 04/30/2019 63697 Holter Monitor Review (24 hr)dr review & interp only Completed Medical Devices Description No Information Available Encounters Type Date Location Provider Dx Diagnosis Office Visit 07/29/2019 Pulmonology And Rupinder Weeks, G47.33 Obstructive sleep 1:00p [facility], RN, LADDER OPERATOR-BC apnea (adult) Folder Gluer Operator (pediatric) G47.14 Hypersomnia due to medical condition Office Visit 05/27/2019 Neurohospitalist Oscar R00.2 Palpitations 8:00a Clinic Sameer N.P. R42 Dizziness and giddiness G43.009 Migraine w/o aura, not intractable, w/o status migrainosus R20.2 Paresthesia of skin R53.83 Other fatigue Office Visit 04/15/2019 Neurohospitalist Oscar R42 Dizziness and 8:30a Clinic Sameer, N.P. giddiness G43.009 Migraine w/o aura, not intractable, w/o status migrainosus R20.2 Paresthesia of skin R00.2 Palpitations Assessments Date Code Description Provider 09/15/2019 R42 Dizziness and giddiness Roman Hubbard M.D. 09/15/2019 G43.009 Migraine without aura, not Roman Hubbard M.D. intractable, without status migrainosus 09/15/2019 R20.2 Paresthesia of skin Roman Hubbard M.D. 09/15/2019 G47.33 Obstructive sleep apnea (adult) Roman Hubbard M.D. 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 04/15/2019 R00.2 Palpitations Delgado Reyes.Segundo. Plan of Treatment 09/15/2019 - Roman Hubbard M.D.R42 Dizziness and giddinessNew Orders:Event Monitor, Ordered: 09/15/19Follow up:Follow up in 4 monthsRecommendations:Call me 3-4 days after event monitor is complete to review the results Keep me in the loop about further events Keep a journal of your events Drink 64 oz of water a day. She does not drink jrpiroO34.009 Migraine without aura, not intractable, without status xwakgelbuofV92.2 Paresthesia of skinG47.33 Obstructive sleep apnea (adult) (pediatric) Functional Status Description No Information Available Mental Status Description No Information Available Referrals Refer to Reason for Referral Status Appt Date Arabella Gee MD Sent [address] [place] [address] [address] [phone]
--- OUTSIDE RECORDS SUMMARY | 2019-09-15 16:12 | XMS REPORT | Continuity of Care Document ---
:1985 External Reference #:[id number] Author Name Roman Hubbard M.D. (transmitted by agent of provider Sherri Kruse ) Address [address] [facility] [facility], [place] [address] Care Team Providers Name Role Phone Ailyn Cardoza FNP-Yesye - Family Care Team Information Neurosurgery Spine Physician [phone] Problems Active Problems Provider Date Obstructive sleep [...] Result H/L Range Note Laboratory test 09/05/2019 [facility] Covid19, PCR Undetected Undetected 1 finding [facility] [place] [address] [phone] Laboratory test 04/18/2019 [facility] Anti Nuclear 0.4 U 2 finding [facility] [employer] [facility] [place] [place] [address] [phone] Lyme Screen W/ Reflex To WB Negative Negative Erythrocyte Sed Rate 5 mm/Hr Normal 0-19 C Reactive Protein < 1.00 mg/L Normal <8.01 Protein 04/18/2019 [facility] Total 7.8 g/dL 6.3 - Electrophoresis [facility] [employer] [facility] Protein(Pep) 7.[address] [place] [address] [phone] Albumin 4.2 g/dL 3.4-4.7 Alpha-1 Globulin 0.2 g/dL 0.1-0.3 Alpha-2 Globulin 0.9 g/dL 0.6-1.0 Beta Globulin 1.0 g/dL 0.7-1.2 Gamma Globulin 1.5 g/dL 0.6-1.6 Albumin/Globulin Ratio 1.15 Impression See Comment 3 Urinalysis Profile 04/18/2019 [facility] Urine Color Yellow [facility] [place] [address] [phone] Urine Appearance Cloudy Urine Specific Carmen 1.023 Normal 1.010-1.030 Urine pH 6.0 Normal 5-9 Urine Urobilinogen Negative Negative Urine Ketones Negative Negative Urine Protein Negative Negative Urine Leukocytes Negative Negative Urine Blood Negative Negative Urine Nitrite Negative Negative Urine Bilirubin Negative Negative Urine Glucose Negative Negative 1 SARS-CoV-2 RNA is not detected. ADDITIONAL INFORMATION Testing was performed using the rosa SARS-CoV-2 assay ([employer] on the rosa [employer] System. Fact sheets for this Emergency Use Authorization (EUA) assay can be found at the following links: For Healthcare Providers: https://www.fda.gov/media/148187/download For Patients: https://www.fda.gov/media/708434/download Test Performed by: [place] [address] Real Estate Office Manager: Juan Diego Palomino M.D. Ph.D.; CLIA# [id number] 2 REFERENCE VALUE <=1.0 (Negative) Test Performed by: [place] [address] [employer] Estate Office Manager: Juan Diego Palomino M.D. Ph.D.; CLIA# [id number] 3 RESULT: No apparent monoclonal protein on serum electrophoresis. Test Performed by: [place] [address] Real Estate Office Manager: Juan Diego Palomino M.D. Ph.D.; CLIA# [id number] Procedures Date Code Description Status 07/10/2019 25776 Polysomnography Sleep Staging 4+ Parameters Completed 06/18/2019 06410 EEG Recording Awake & Asleep Completed 05/29/2019 81261 Remove Intrauterine Device Completed 04/30/2019 09419 ECHO Transthorasic Realtime 2D W Doppler & Color Flow Hosp Completed 04/30/2019 35120 Holter Monitor Review (24 hr)dr review & interp only Completed Medical Devices Description No Information Available Encounters Type Date Location Provider Dx Diagnosis Office Visit 07/29/2019 Pulmonology And Rupinder Weeks, G47.33 Obstructive sleep 1:00p [facility], RN, BONE DENSITY TECHNICIAN-BC apnea (adult) 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 R42 Dizziness and giddiness G43.009 Migraine [...] sleep apnea (adult) Rupinder Weeks DNP, RN, BONE DENSITY TECHNICIAN-BC (pediatric) 07/29/2019 G47.14 Hypersomnia due to medical Rupinder Weeks DNP, RN, BONE DENSITY TECHNICIAN- BC condition 07/10/2019 G47.33 Obstructive sleep apnea (adult) Arabella Gee MD (pediatric) 06/18/2019 R44.8 Other symptoms and signs involving Piero Agee MD general sensations and perceptions 05/29/2019 Z30.432 Encounter for removal of STEVE ConnerP-e intrauterine contraceptive device 05/27/2019 R00.2 Palpitations [facility] [...] 04/15/2019 G43.009 Migraine without aura, not [facility] intractable, without status migrainosus 04/15/2019 R20.2 Paresthesia of skin [facility] 04/15/2019 R00.2 Palpitations [facility] Plan of Treatment Future Appointment(s):01/22/2020 8:00 am - Roman [facility]09/15/2019 - Roman Hubbard M.D.R42 Dizziness and giddinessNew Orders:Event Monitor, Ordered: 09/15/19Follow up:Follow up in 4 monthsRecommendations:Call me 3-4 days after event monitor is complete to review the results Keep me in the loop about further events Keep a journal of your events Drink 64 oz of water a day. She does not drink nrfazgN96.009 Migraine without aura, not intractable, without status khsosshdiwrA66.2 Paresthesia of skinG47.33 Obstructive sleep apnea (adult) (pediatric) Functional Status Description No Information Available Mental Status Description No Information Available Referrals Refer to Reason for Referral Status Appt Date Arabella Gee MD Sent [address] [place] [phone]
--- NOTE | 2019-09-15 16:19 | UC ---
Syncope/New Syncope HPI - HPI Summary HPI Summary: 34-year-old woman comes in with a chief complaint of near syncope. Last evening she had 2 episodes where she woke from sleep felt like she's got a pass out. She did not pass out. Today she had 3 more episodes of feeling like she' s going to pass out. She started with these episodes in September 2018. They were infrequent every 2-3 weeks. They became more frequent in the fall of 2018 and she had an evaluation that included a 24-hour Holter monitor, an echocardiogram , brain MRI and neurology evaluation. She reports everything was normal. Today she had a follow-up with neurology and when she let them know she was having some episodes they recommended further evaluation either in urgent care or the emergency department. She did report some palpitations with the episodes today. No complaint of chest pain. Patient feels well otherwise. She feels well now. - History Of Current Complaint Stated Complaint: PALPATATIONS Time Seen by Provider: 09/15/19 16:11 Hx Last Menstrual Period: iud - Allergies/Home Medications Allergies/Adverse Reactions: Allergies Allergy/AdvReac Type Severity Reaction Status Date / Time Sulfa (Sulfonamide Allergy See Comment Verified 09/15/19 16:21 Antibiotics) Home Medications: Home Medications Albuterol HFA INHALER* [Ventolin HFA Inhaler*] 1 puff INH Q4H PRN 04/05/18 [ History Confirmed 09/15/19] PMH/Surg Hx/FS Hx/Imm Hx Previously Healthy: Yes Respiratory History: Asthma - Surgical History Surgical History: Yes Surgery Procedure, Year, and Place: 06/2016- BILATERAL BREAST AUGMENTATION- [place] - Family History Known Family History: Positive: Hypertension, Diabetes - maternal grandfather - Social History Alcohol Use: Weekly Alcohol Amount: 1-2 PER WEEK Substance Use Type: None Smoking Status (MU): Never Smoked Tobacco Review of Systems All Other Systems Reviewed And Are Negative: Yes Constitutional: Positive: Other - SEE HPI Skin: Positive: Negative Eyes: Positive: Negative ENT: Positive: Negative Respiratory: Positive: Negative Cardiovascular: Positive: Palpitations Gastrointestinal: Positive: Negative Motor: Positive: Negative Neurovascular: Positive: Negative Musculoskeletal: Positive: Negative Neurological/Mental Status: Positive: Negative Psychological: Positive: Negative Is Patient Immunocompromised?: No Physical Exam Triage Information Reviewed: Yes Appearance: Well-Appearing, No Pain Distress, Well-Nourished Vital Signs Reviewed: Yes Eye Exam: Normal Eyes: Positive: Conjunctiva Clear Neck: Positive: Supple Respiratory: Positive: Lungs clear, Normal breath sounds, No respiratory distress Cardiovascular: Positive: RRR Musculoskeletal: Positive: Strength Intact, ROM Intact, No Edema - No calf tenderness Neurological: Positive: Alert, Muscle Tone Normal Psychological: Positive: Age Appropriate Behavior Skin Exam: Normal Diagnostics - EKG Cardiac Rate: NL - at 1609 Cardiac Rhythm: Sinus: Normal - 94bpm Ectopy: None ST Segment: Normal Syncope Course/Dx - Course Course Of Treatment: Discussed the EKG and vital signs with the patient. She feels well here. We discussed further evaluation in the emergency department now versus following up with cardiology as soon as possible outpatient. Patient reports she's been having these episodes for a long time and has never passed out. She feels most comfortable following up with cardiology as an outpatient. I let the patient know that if she has any further concerns about these episodes or if she has any more episodes or if she passes out or any other concerns she should get reevaluated right away in the emergency department. - Differential Dx/Diagnosis Provider Diagnosis: Near syncope Discharge ED - Sign-Out/Discharge Documenting (check all that apply): Patient Departure All imaging exams completed and their final reports reviewed: No Studies - Discharge Plan Condition: Stable Disposition: HOME Patient Education Materials: Near Syncope (ED) Referrals: Ailyn Cardoza NP, CNM [Primary Care Provider] - Nestor Hubbard MD [Medical Doctor] - Justin Hook MD [Medical Doctor] - Additional Instructions: FOLLOW UP WITH CARDIOLOGY, NEUROLOGY AND YOUR PRIMARY CARE DOCTOR. GO TO THE EMERGENCY DEPARTMENT IF WORSE; YOU PASS OUT, ANY MORE NEAR SYNCOPAL EPISODES, YOU FEEL ILL OR ANY QUESTIONS OR CONCERNS. - Billing Disposition and Condition Condition: STABLE Disposition: Home
[2019-09-15 16:21] VITALS: BP 150/93
== END 2019-09-15 16:52 | disposition home or self-care (01) ==
LOC: UCEAST 16:07
DX: R55 Syncope and collapse (principal); R00.2 Palpitations; J45.909 Unspecified asthma, uncomplicated; Z88.2 Allergy status to sulfonamides
CPT/HCPCS: 93005; 99211; G0463

== ENCOUNTER 2020-08-20 20:21 | Inpatient (IN) ==
[2020-08-20] MEDS ORDERED: Buffered Lidocaine 1% SYRIN 1 ml INTRADERM ONE (21:15)
[2020-08-20] MEDS ORDERED: Lactated Ringers 1000 ml BAG 1,000 ML IV ONE (21:15)
[2020-08-20] MEDS ORDERED: Penicillin G Potassium IV 5,000,000 UNITS in NS 0.9% 100 ml BAG 100 ML IVPB ONE (21:15)
[2020-08-20] MEDS ORDERED: Betamethasone 6 mg/ml 5 ml VIAL IM ONE (21:15)
[2020-08-20 22:39] LABS: Hematocrit 43 % (35-47); Hemoglobin 14.7 g/dL (12.0-16.0); Mean Corpuscular HGB Conc 34 g/dL (31-36); Mean Corpuscular Hemoglobin 31 pg (27-31); Mean Corpuscular Volume 91 fL (80-97); Platelet Count 221 10^3/uL (150-450); Red Blood Count 4.76 10^6 /uL (3.70-4.87); Red Cell Distribution Width 14 % (10-15); White Blood Count 15.3 10^3/uL (3.5-10.8)
[2020-08-20 22:42] LABS: ABS Eosinophils 0.1 10^3/ul (0-0.6); ABS Lymphocytes 3.2 10^3/ul (1.0-4.8); ABS Monocytes 1.6 10^3/ul (0-0.8); ABS Neutrophils 10.4 10^3/ul (1.5-7.7); Eosinophil % 0.6 %
[2020-08-20 22:52] LABS: Urine Benzodiazepine Screen None Detected (None Detect); Urine Cannabinoids Screen None Detected (None Detect); Urine Opiates Screen None Detected (None Detect)
[2020-08-21] MEDS: Lactated Ringers 1000 ml BAG 1,000 ML IV SCH ×2 (02:12→14:15)
[2020-08-21] MEDS: Penicillin G Potassium IV 3,000,000 UNITS in NS 0.9% 100 ml BAG 100 ML IVPB SCH ×6 (02:12→21:56)
[2020-08-21] MEDS ORDERED: Promethazine INJ(RESTRICTED) 25 MG/ML 1 ml VIAL IV PRN (10:43)
[2020-08-21] MEDS ORDERED: Morphine 10 MG/ML VIAL (1 ml) IV ONE (10:44)
[2020-08-21] MEDS ORDERED: OBEPIDURAL 250 ML EPIDURAL ONE (15:09)
[2020-08-21] MEDS ORDERED: Phenylephrine 40 mcg/mL 10mL (400mcg) SYRINGE IV PUSH PRN (15:41)
[2020-08-21] MEDS ORDERED: Lactated Ringers 1000 ml BAG 1,000 ML IV ONE (15:41)
[2020-08-21] MEDS: Phenylephrine 40 mcg/mL 10mL (400mcg) SYRINGE IV PUSH PRN ×2 (15:46→15:49)
[2020-08-21] MEDS ORDERED: OBEPIDURAL 250 ML EPIDURAL SCH (16:00)
[2020-08-21] MEDS ORDERED: Lactated Ringers 1000 ml BAG 1,000 ML IV SCH ×2 (16:00→22:00)
[2020-08-21] MEDS ORDERED: Oxytocin in LR 20 UNITS/1,000 ML BAG IVPB ONE (16:22)
[2020-08-21] MEDS ORDERED: Oxytocin in LR 20 UNITS/1,000 ML BAG IVPB SCH ×2 (17:00→22:00)
[2020-08-21] MEDS ORDERED: Witch Hazel PAD JAR TOPICAL PRN (21:26)
[2020-08-21] MEDS ORDERED: Glycerin ADULT 2.4 gm SUPP PR PRN (21:26)
[2020-08-21] MEDS ORDERED: Dibucaine 1% OINT 28.35 GM TUBE PR PRN (21:26)
[2020-08-21] MEDS ORDERED: RHO D Immune Globulin (HUMAN) 300 MCG = 1,500 I.U. INJ IM ONE (21:29)
[2020-08-21] MEDS ORDERED: Methylergonovine 0.2 mg AMPULE 1 ml AMP IM ONE (22:33)
[2020-08-21] MEDS ORDERED: Lidocaine 1% VIAL 10 MG/ML VIAL ONE (23:38)
[2020-08-22 08:42] LABS: Hematocrit 39 % (35-47); Hemoglobin 12.9 g/dL (12.0-16.0); Mean Corpuscular HGB Conc 34 g/dL (31-36); Mean Corpuscular Hemoglobin 31 pg (27-31); Mean Corpuscular Volume 91 fL (80-97); Mean Platelet Volume 8.8 fL (7.4-10.4); Platelet Count 219 10^3/uL (150-450); Red Blood Count 4.21 10^6 /uL (3.70-4.87); Red Cell Distribution Width 14 % (10-15); White Blood Count 24.9 10^3/uL (3.5-10.8)
[2020-08-22 10:13] LABS: ABS Monocytes 2.1 10^3/ul (0-0.8); ABS Neutrophils 18.7 10^3/ul (1.5-7.7); Eosinophil % 0.1 %; Lymphocyte % 16.1 %
[2020-08-23 07:36] VITALS: BP 107/76
== END 2020-08-23 17:17 | disposition home or self-care (01) | DRG 560 ==
LOC: MCHOBOUT 20:21 → MCHOB 21:32
PROVIDERS: ADMIT Midwife; ATTEND Midwife